=== PATIENT | female | born 1985 | race Caucasian/White ===

== ENCOUNTER 2019-07-12 09:25 | Inpatient (IN) | payer BC, SELFPAY ==
[2019-07-12] VITALS (15 sets, daily range): BP systolic 97–127; BP diastolic 43–69; PULSE 54–75; RESP 14–58; TEMP 36.4–36.9; O2SAT 96–100; BMI 34.7
[2019-07-12] MEDS: Lactated Ringers 1,000 ML 999 ML IV (09:50)
[2019-07-12 10:06] LABS: Absolute Lymphocyte Count 2.11 X10^3/uL (0.83-4.51); Absolute Neutrophil Count 6.8 X10^3/uL (2.0-7.7); Basophil# 0.03 X10^3/uL; Basophil% 0.3 % (0-1); Eosinophil# 0.06 X10^3/uL; Eosinophils% 0.6 % (0-5); Hematocrit 36.8 % (37-47); Hemoglobin 12.2 g/dL (12.0-15.0); Lymphocyte # 2.11 X10^3/ul (4.0); Lymphocyte % 21.3 % (19-41); Mean Corp Hgb Conc 33.2 g/dL (32-36); Mean Corpuscular Hgb 33.2 pg (27.0-32.0); Mean Platelet Vol. 11.4 fl (6.2-12.0); Monocyte# 0.69 X10^3/uL; NRBC Flagged by Analyzer 0 % (0-5); Neutrophil # 6.77 X10^3/uL (2.7-7.7); Neutrophil % 68.3 % (47-70); Platelet Count 236 K/mm3 (150-450); RBC Distribution Width CV 14.1 % (11.6-14.6); RBC Distribution Width SD 51.3 fl (35.1-43.9); Red Blood Count 3.68 M/mm3 (4.2-5.4); White Blood Count 9.9 K/mm3 (4.4-11.0)
[2019-07-12] MEDS: Lactated Ringers 1,000 ML 150 ML IV (10:47)
[2019-07-12] MEDS: Sodium Citrate/Citric Acid 30 ML UDC PO (12:01)
[2019-07-12] MEDS: Cefazolin 2 GM in 0.9% Normal Saline 100 ML IV (12:15)
--- NOTE | 2019-07-12 12:57 | HP.PCM_ITS ---
History Date of Admission: 07/12/19 Final ELIZABET: 07/30/19 Final ELIZABET Source: US <20 weeks Gestational age: 37 Weeks and 3 Days History of this : This is a 33 year-old multigravida at 37-3/7 weeks gestation who presents with twin gestation, transverse to breech presentation for section. has been complicated to date by suspected growth restriction of baby B. Patient has not had any regular contractions. She is had good movement. This is a dichorionic diamniotic twin gestation. Allergies No Known Allergies Allergy (Unverified 05/27/14 08:44) Home Medications: Home Medications Vits [Prenatabs FA ] 1 tablet PO DAILY 05/27/14 Valacyclovir HCl [Valacyclovir] 400 mg PO TID 05/27/14 Smoking Status: Never smoker Alcohol: None Number of Fetus(es): 2 History Past Pregnancies: Past Pregnancies Delivery Date Name GA/ Weeks Outcome Route Wt Sex Labor Length Anesthesia Delivery Location Provider FOB Expected Infant Delivery Method: Scheduled Section Review of Systems Constitutional: Denies: Chills, Fever Eyes: Denies: Blurred vision Cardiovascular: Denies: Chest Pain Respiratory: Denies: Cough Neurological: Denies: Change in Speech, Slurred speech Physical Exam General: Alert, Oriented x3, No apparent distress Cardiovascular: Regular rate Lungs: Normal air movement Abdomen: Soft, Non Tender, Non-Distended, Gravid, Appropriate for Gestational Age Extremities:: Other - 2+ pitting edema Neurological: Cranial nerves II-XII grossly intact METAL NUMERICAL CONTROL PROGRAMMER: Normal external genitalia Estimated gestational size: Appropriate for gestational size Presentation: Transverse Assessment/Plan This is a 33 year-old, multigravida for primary section and bilateral salpingectomy for dichorionic diamniotic twin gestation in transverse, breech presentation. Desires salpingectomy for permanent sterilization. Risk benefits and alternatives to section were discussed with patient, her questions were answered to her satisfaction she desires to proceed.
--- NOTE | 2019-07-12 13:01 | OP.PCM_ITS ---
Delivery Classification: Scheduled Final ELIZABET: 07/30/19 Final ELIZABET Source: US <20 weeks Gestational age: 37 Weeks and 3 Days automatic mold sander: Arlen Goyal Type of Anesthesia:: Spinal Special Medications: none Implants Used: none Date of Procedure: 07/12/19 Pre-Operative Diagnosis: 37 3/7 week, dichorionic, diamniotic twin gestation, suspected growth restriction of twin b, transverse/breech presentation, sterilization request Post-Operative Diagnosis: same Description of Procedure: The patient was taken to the operating room. She was prepped and draped in the dorsal supine position with a leftward tilt. A Pfannenstiel skin incision was made approximately 2 cm above the symphysis pubis and carried through to underlying layer fascia with the scalpel. The fascia was incised incised in the midline and extended laterally with the Franco scissors. The fascia was dissected off the rectus muscles with blunt and sharp dissection. The rectus muscles were in the midline and the peritoneum was entered bluntly. The peritoneal incision was stretched and the bladder blade was placed. The uterine incision was made in a low transverse fashion with the scalpel and extended superiorly and inferiorly with blunt dissection. The amniotic membranes were ruptured bluntly and clear amniotic fluid returned. The 's feet were brought to the incision and the baby was turned back up after the buttocks were delivered. The baby was grasped with a blue towel and the arms were swept out individually and the head was delivered in a flexed position easily without difficulty with minimal fundal pressure. The second was found to be christiano breech with the feet near the head. After artificial rupture membranes, clear fluid returned. I could not grasp the head and bring it to the incision so both feet were grasped and the baby was delivered to the buttocks and turned back up the arms were swept out and the head delivered again easily with minimal fundal pressure. Cord clamping was delayed for both neonates. The cord was clamped and cut as the infant was stimulated. Cord clamping was delayed. The infant was handed off to the waiting nursing staff. The placenta was delivered with fundal massage and gentle traction in the standard fashion. The uterus was exteriorized and cleared of all clots and debris. The cervix was dilated with a ring forcep. The uterine incision was closed with #1 Vicryl in a running locked fashion. A second layer of the same suture was used in an imbricating fashion. The incision was examined and was found to be hemostatic. The uterus was placed back into the peritoneal cavity and the right fallopian tube was identified and followed out to the fimbriated end. The LigaSure was used to clamp, seal, and transect the antimesenteric portion of the tube to the cornual insertion. The tube was amputated with the LigaSure device and the pedicles were hemostatic. The same procedure was performed on the contralateral side and again hemostasis was assured. Uterine incision was reexamined and found to be hemostatic. The rectus muscles were examined and any bleeding was Bovie cauterized. The parietal peritoneum and rectus muscles were closed en bloc with an 0 Vicryl running suture. The surgical teams outer gloves were then changed. The rectus fascia was examined and any bleeding was Bovie cauterized and the rectus fascia was closed with 1 Vicryl suture in a running standard fashion. The subcutaneous tissue was examining and any bleeding was Bovie cauterized. The subcutaneous tissue was reapproximated with 3-0 Vicryl suture. The skin was closed in a subcuticular f ashion by the INCOME TAX PREPARER with me present in the labor and delivery suite. I performed the remainder of the procedure with assistance. All sponge, lap, and needle counts were correct. The patient was taken to her room for recovery in a stable condition. Amniotic Membrane Rupture Type: Artificial Amniotic Fluid Description: Clear Placenta Disposition: Sent to Pathology - [facility] due to baby B admitted to [facility] Specimen(s) sent to pathology: bilateral fallopian tubes Drain: Mcarthur to straight drain Fluids Replaced: 1000 Cord Entanglement: None Cord Vessel Description: 3 Vessels Esitmated Blood Loss (ml): 100 Infant Gender: Male - [place], 6lb 5 oz (1 minute): 8 (5 minute): 9 Delayed cord clamping: Yes Antibiotic Given: Ancef 2 grams IV x1 Complications: None - Admit VTE Documentation VTE Present on Admission: No VTE Mechan Device Prophylaxis: SCD's VTE Pharm Prophylaxis ordered?: No Reason prophylaxis not ordered:: Procedure Not Indicated Baby B - Information Amniotic Membrane Rupture Type: Artificial Presentation: Christiano Breech - Operative Information Cord Entanglement: None Cord Vessel Description: 3 Vessels B gender: Male - 4lb 4 oz, Connor (1 minute): 8 (5 minute): 9
[2019-07-12] MEDS: Oxytocin 30 units/NS 500 ml 30 UNITS/500 ML IV.SOLN 167 UNITS IV (13:20)
--- NOTE | 2019-07-12 13:49 | FALS_PTH ---
PATIENT: CHRIS PALACIOS LOC: [facility] U#:[id number] AGE/SX: 33/F ROOM: WP007 RE07/12/[address]: Dr. Jennie Umaña MD : 1985 BED: 1 DIS: 07/15/2019 SPEC #: [id number] RECD: 07/13/19 09:14 STATUS: OMID KAYY #: [id number] DHAVAL: 07/12/19 13:[address]: Jennie Umaña DEPT: SURGICAL PATHOLOGY RECD BY: Ilana Maya ENTERED: 07/13/19 09:15 SP TYPE: FALL TUBES OTHR DR: No Primary Care Phys Tissues: Fallopian tube Procedures: Surgery Specimen Level II HEADER OPERATION: Tubal ligation PRE-OP DIAGNOSIS: Sterilization TISSUE SUBMITTED: Bilateral fallopian tubes, suture in right tube MICROSCOPIC DIAGNOSIS Bilateral fallopian tubes, salpingectomy: Bilateral fallopian tubes including fimbrial ends, no pathologic diagnosis. SJ:melva 07/14/19 MICROSCOPIC DESCRIPTION Slides are reviewed. GROSS DESCRIPTION Received in fixative is one container labeled with the patient's name and designated bilateral fallopian tubes, suture in right. The specimen consists of two fallopian tubes with an average length of 7 cm and has an average diameter of 0.8 cm. Both fallopian tubes have normal fimbriated ends. No mass lesions are identified. Seed District Sales Manager sections are submitted in two cassettes as follows: 1 - right fallopian tube, 2 - left fallopian tube. / AM:melva 07/13/19 TC:4 CPT: 33979 x2
[2019-07-12 14:00] LABS: Pathology Specimen OB SEE PATHOLOGY REPORT
[2019-07-12] MEDS: Methylergonovine 0.2 MG/ML Ampul IM (14:05)
[2019-07-12] MEDS: DiphenhydrAMINE 25 MG Capsule PO ×2 (14:40→22:09)
[2019-07-12] MEDS: Lactated Ringers 1,000 ML 100 ML IV (16:33)
[2019-07-12] MEDS: Acetaminophen 500 MG Tablet 1000 MG PO (16:50)
[2019-07-12] MEDS: Ketorolac 30 MG/ML Syringe IV (18:05)
[2019-07-13] MEDS: Ketorolac 30 MG/ML Syringe IV ×4 (00:20→17:33)
[2019-07-13] MEDS: 0.9% Saline Lock 10 ML Syringe IV ×4 (00:20→17:33)
[2019-07-13 00:33] VITALS: BP 115/62; PULSE 63; RESP 16; TEMP 36.5; O2SAT 98
[2019-07-13] MEDS: Acetaminophen 500 MG Tablet 1000 MG PO ×3 (04:28→21:48)
[2019-07-13 04:33] VITALS: BP 121/59; PULSE 61; RESP 18; TEMP 36.5; O2SAT 99
[2019-07-13] MEDS: DiphenhydrAMINE 25 MG Capsule PO (06:52)
[2019-07-13 07:45] LABS: Hematocrit 27.4 % (37-47); Hemoglobin 9.1 g/dL (12.0-15.0); Mean Corp Hgb Conc 33.2 g/dL (32-36); Mean Corpuscular Hgb 34.2 pg (27.0-32.0); Mean Platelet Vol. 11.3 fl (6.2-12.0); Platelet Count 195 K/mm3 (150-450); RBC Distribution Width CV 14.2 % (11.6-14.6); Red Blood Count 2.66 M/mm3 (4.2-5.4); White Blood Count 16.4 K/mm3 (4.4-11.0)
[2019-07-13 08:02] VITALS: BP 113/50; PULSE 71; RESP 14; TEMP 36.5
--- NOTE | 2019-07-13 08:11 | PCM.PN.OB ---
Subjective: pain well controlled, average lochia. Yahir. regular diet. - Physical Exam Vitals/I&O's: Vital Signs Temp Pulse Resp BP Pulse Ox 97.7 F L 71 14 113/50 L 99 07/13/19 08:02 07/13/19 08:02 07/13/19 08:02 07/13/19 08:02 07/13/19 04:33 Oxygen Delivery Method Room Air Weight: 91.8 kg Body Mass Index (BMI) 34.7 Intake and Output for Last 24 Hours 07/11/19 07/12/19 07/13/19 23:59 23:59 23:59 Intake Total 1763.2 / 1763.2 1400 / 1400 Output Total 100 / 100 1250 / 1250 Balance 1663.2 / 1663.2 150 / 150 General: Alert, Cooperative, No apparent distress Abdomen: Soft, Distended - moderately, softly, Tender - appropriately Skin: Incision - bandage is clean, dry and intact Laboratory Results 07/12/19 09:50: WBC 9.9, RBC 3.68 L, Hgb 12.2, Hct 36.8 L, MCV 100.0 H, MCH 33.2 H, MCHC 33.2, RDW Std Deviation 51.3 H, RDW Coeff of Alvarez 14.1, Plt Count 236, MPV 11.4, Immature Gran % (Auto) 2.500 H, Neut % (Auto) 68.3, Lymph % (Auto) 21.3, [place] % (Auto) 7.0, Eos % (Auto) 0.6, Baso % (Auto) 0.3, Absolute Neuts (auto) 6.8, Absolute Lymphs (auto) 2.11, Nucleated RBC % 0 07/12/19 09:50: Blood Type A POSITIVE, Antibody Screen NEGATIVE 07/13/19 07:36: WBC 16.4 H, RBC 2.66 L, Hgb 9.1 L, Hct 27.4 L, MCV 103.0 H, MCH 34.2 H, MCHC 33.2, RDW Std Deviation 53.0 H, RDW Coeff of Alvarez 14.2, Plt Count 195, MPV 11.3 Current Medications Acetaminophen (Tylenol) 1,000 mg PO Q8H PRN PRN Reason: Pain Score 1-3/10 Last Admin: 07/13/19 04:28 Dose: 1,000 mg Documented by: Bisacodyl (Dulcolax) 10 mg RECTAL UD PRN PRN Reason: If no BM Diphenhydramine HCl (Benadryl) 25 mg PO Q6H PRN PRN PRN Reason: ITCHING Stop: 07/13/19 14:26 Last Admin: 07/13/19 06:52 Dose: 25 mg Documented by: Hydrocortisone (Hytone) 1 applic TOPICAL TID PRN PRN; Protocol PRN Reason: Discomfort Naloxone HCl 4 mg/ Dextrose 504 mls @ 0 mls/hr IV .Q0M PRN; Protocol PRN Reason: Respiratory depression Ketorolac Tromethamine (Toradol (Bkc)) 30 mg IV Q6H HELENA Stop: 07/14/19 12:01 Last Admin: 07/13/19 06:33 Dose: 30 mg Documented by: Methylergonovine Maleate (Methergine) 0.2 mg IM X1 PRN PRN Reason: Uterine Atony Last Admin: 07/12/19 14:05 Dose: 0.2 mg Documented by: Metoclopramide HCl (Reglan) 10 mg IV Q4H PRN PRN PRN Reason: Nausea/Vomiting Nalbuphine HCl (Nubain) 5 mg IV Q3H PRN PRN PRN Reason: ITCHING Stop: 07/13/19 14:26 Naloxone HCl (Narcan) 0.02 mg IV Q1M PRN PRN Reason: RR <10 and pt unresponsive Naproxen (Naprosyn) 250 - 500 mg PO Q8H PRN PRN PRN Reason: Pain Score 1-3/10 Ondansetron HCl (Zofran) 4 mg IV Q4H PRN PRN PRN Reason: Nausea Oxycodone HCl (Oxyir) 5 - 10 mg PO Q4H PRN PRN PRN Reason: Pain Score 4-10/10 Prochlorperazine Edisylate (Compazine Iv) 10 mg IV Q6H PRN PRN PRN Reason: NAUSEA Senna/Docusate Sodium (Senokot-S, Shahla-Colace) 0 tablet PO DAILY PRN PRN Reason: Constipation Simethicone (Mylicon) 80 mg PO PCHS PRN PRN Reason: Indigestion/stomach pain Sodium Chloride () 5 - 15 ml IV UD PRN PRN Reason: SALINE FLUSH Last Admin: 07/13/19 06:33 Dose: 10 ml Documented by: Medical Necessity - Tobacco Use Smoking Status: Never smoker Assessment/Plan POD#1 status post primary section with bilateral salpingectomy. Patient is doing well. Mild acute blood loss anemia appropriate for blood loss during surgery. Both neonates are in the special care nursery. Plans to work on breast-feeding and pump. Ambulate. Routine postoperative care reviewed.
[2019-07-13 12:50] VITALS: BP 116/60; PULSE 87; RESP 16; TEMP 36.6
[2019-07-13] MEDS: Senna/Docusate Sodium 1 Tablet PO (13:46)
[2019-07-13 19:27] VITALS: BP 113/62; PULSE 80; RESP 16; TEMP 36.7; O2SAT 100
[2019-07-14] MEDS: Ketorolac 30 MG/ML Syringe IV ×3 (00:12→12:42)
[2019-07-14] MEDS: 0.9% Saline Lock 10 ML Syringe IV ×3 (00:13→12:43)
[2019-07-14 02:18] VITALS: BP 122/74; PULSE 79; RESP 16; TEMP 36.4
[2019-07-14] MEDS: oxyCODONE 5 MG Tablet PO (03:34)
[2019-07-14 07:45] VITALS: BP 123/65; PULSE 79; RESP 16; TEMP 36.6; O2SAT 99
[2019-07-14] MEDS: Acetaminophen 500 MG Tablet 1000 MG PO ×2 (07:49→16:08)
--- NOTE | 2019-07-14 08:05 | PCM.PN.OB ---
Subjective: Patient seen at bedside. Reports feeling well physically. Passing flatus, voiding, and ambulating without difficulty. Pain is well controlled. Pumping for twins in SCN. - Physical Exam Vitals/I&O's: Vital Signs Temp Pulse Resp BP Pulse Ox 97.5 F L 79 16 122/74 H 100 07/14/19 02:18 07/14/19 02:18 07/14/19 02:18 07/14/19 02:18 07/13/19 19:27 Oxygen Delivery Method Room Air Weight: 202 lb 6.15 oz Body Mass Index (BMI) 34.7 Intake and Output for Last 24 Hours 07/12/19 07/13/19 07/14/19 23:59 23:59 23:59 Intake Total 1763.2 / 1763.2 1400 / 1400 Output Total 100 / 100 1650 / 1650 Balance 1663.2 / 1663.2 -250 / -250 General: Alert HEENT: Atraumatic Oral: Moist Mucosa Lungs: Normal air movement Abdomen: Bowel Sounds Present, Soft, Non Tender Extremities: No Calf Tenderness, Edema - Bilateral 2+ pitting edema in lower extemities Skin: No rashes Neurological: Cranial nerves II-XII grossly intact Psych/Mental Status: Appropriate, Alert and oriented to time, place, person, mood and affect Current Medications Acetaminophen (Tylenol) 1,000 mg PO Q8H PRN PRN Reason: Pain Score 1-3/10 Last Admin: 07/14/19 07:49 Dose: 1,000 mg Documented by: Bisacodyl (Dulcolax) 10 mg RECTAL UD PRN PRN Reason: If no BM Hydrocortisone (Hytone) 1 applic TOPICAL TID PRN PRN; Protocol PRN Reason: Discomfort Naloxone HCl 4 mg/ Dextrose 504 mls @ 0 mls/hr IV .Q0M PRN; Protocol PRN Reason: Respiratory depression Ketorolac Tromethamine (Toradol (Bkc)) 30 mg IV Q6H HELENA Stop: 07/14/19 12:01 Last Admin: 07/14/19 05:47 Dose: 30 mg Documented by: Methylergonovine Maleate (Methergine) 0.2 mg IM X1 PRN PRN Reason: Uterine Atony Last Admin: 07/12/19 14:05 Dose: 0.2 mg Documented by: Metoclopramide HCl (Reglan) 10 mg IV Q4H PRN PRN PRN Reason: Nausea/Vomiting Naloxone HCl (Narcan) 0.02 mg IV Q1M PRN PRN Reason: RR <10 and pt unresponsive Naproxen (Naprosyn) 250 - 500 mg PO Q8H PRN PRN PRN Reason: Pain Score 1-3/10 Ondansetron HCl (Zofran) 4 mg IV Q4H PRN PRN PRN Reason: Nausea Oxycodone HCl (Oxyir) 5 - 10 mg PO Q4H PRN PRN PRN Reason: Pain Score 4-10/10 Last Admin: 07/14/19 03:34 Dose: 5 mg Documented by: Prochlorperazine Edisylate (Compazine Iv) 10 mg IV Q6H PRN PRN PRN Reason: NAUSEA Senna/Docusate Sodium (Senokot-S, Shahla-Colace) 0 tablet PO DAILY PRN PRN Reason: Constipation Last Admin: 07/13/19 13:46 Dose: 2 tablet Documented by: Simethicone (Mylicon) 80 mg PO PCHS PRN PRN Reason: Indigestion/stomach pain Sodium Chloride () 5 - 15 ml IV UD PRN PRN Reason: SALINE FLUSH Last Admin: 07/14/19 05:47 Dose: 10 ml Documented by: Medical Necessity - Tobacco Use Smoking Status: Never smoker Assessment/Plan PPD #2 S/P Primary C/S Routine care Pain management
[2019-07-14] MEDS: Senna/Docusate Sodium 1 Tablet PO (12:42)
[2019-07-14 12:45] VITALS: BP 117/63; PULSE 92; RESP 16; TEMP 36.5
--- NOTE | 2019-07-14 16:12 | NURSING ---
pt in SCN feeding infants
[2019-07-14] MEDS: Naproxen 250 MG Tablet PO (17:34)
[2019-07-14 19:40] VITALS: BP 131/57; PULSE 92; RESP 18; TEMP 36.9
[2019-07-15 01:45] VITALS: BP 127/67; PULSE 93; RESP 18; TEMP 36.5
[2019-07-15] MEDS: Naproxen 250 MG Tablet PO ×2 (01:45→10:17)
[2019-07-15] MEDS: oxyCODONE 5 MG Tablet PO (04:09)
[2019-07-15] MEDS: Acetaminophen 500 MG Tablet 1000 MG PO (07:26)
[2019-07-15 07:28] LABS: Pathology Specimen OB SEE PATHOLOGY REPORT
[2019-07-15] MEDS: Senna/Docusate Sodium 1 Tablet PO (07:31)
[2019-07-15 07:40] VITALS: BP 111/53; PULSE 88; RESP 16; TEMP 36.8
--- NOTE | 2019-07-15 08:53 | PCM.PN.OB ---
Subjective: Doing well per patient and nursing staff. Ambulating and taking PO without difficulty. Voiding and passing flatus. Pain controlled. Pumping breast milk. Twins in special care nursery. Lochia normal. - Physical Exam Vitals/I&O's: Vital Signs Temp Pulse Resp BP Pulse Ox 98.2 F 88 16 111/53 L 99 07/15/19 07:40 07/15/19 07:40 07/15/19 07:40 07/15/19 07:40 07/14/19 07:45 Oxygen Delivery Method Room Air Weight: 202 lb 6.15 oz Body Mass Index (BMI) 34.7 Intake and Output for Last 24 Hours 07/13/19 07/14/19 07/15/19 23:59 23:59 23:59 Intake Total 1400 / 1400 Output Total 1650 / 1650 Balance -250 / -250 General: Alert, Oriented x3, Cooperative HEENT: Atraumatic, Normocephalic Neck: Trachea Midline Lungs: Clear to auscultation, Normal air movement, No rhonchi, No wheeze Cardiovascular: Regular rate, Regular Rhythm, No murmurs Abdomen: Bowel Sounds Present - Fundus firm 2 below U, incision dry and intact Extremities: No edema Psych/Mental Status: Normal Affect, Appropriate Current Medications Acetaminophen (Tylenol) 1,000 mg PO Q8H PRN PRN Reason: Pain Score 1-3/10 Last Admin: 07/15/19 07:26 Dose: 1,000 mg Documented by: Bisacodyl (Dulcolax) 10 mg RECTAL UD PRN PRN Reason: If no BM Hydrocortisone (Hytone) 1 applic TOPICAL TID PRN PRN; Protocol PRN Reason: Discomfort Naloxone HCl 4 mg/ Dextrose 504 mls @ 0 mls/hr IV .Q0M PRN; Protocol PRN Reason: Respiratory depression Methylergonovine Maleate (Methergine) 0.2 mg IM X1 PRN PRN Reason: Uterine Atony Last Admin: 07/12/19 14:05 Dose: 0.2 mg Documented by: Metoclopramide HCl (Reglan) 10 mg IV Q4H PRN PRN PRN Reason: Nausea/Vomiting Naloxone HCl (Narcan) 0.02 mg IV Q1M PRN PRN Reason: RR <10 and pt unresponsive Naproxen (Naprosyn) 250 - 500 mg PO Q8H PRN PRN PRN Reason: Pain Score 1-3/10 Last Admin: 07/15/19 01:45 Dose: 500 mg Documented by: Ondansetron HCl (Zofran) 4 mg IV Q4H PRN PRN PRN Reason: Nausea Oxycodone HCl (Oxyir) 5 - 10 mg PO Q4H PRN PRN PRN Reason: Pain Score 4-10/10 Last Admin: 07/15/19 04:09 Dose: 5 mg Documented by: Prochlorperazine Edisylate (Compazine Iv) 10 mg IV Q6H PRN PRN PRN Reason: NAUSEA Senna/Docusate Sodium (Senokot-S, Shahla-Colace) 0 tablet PO DAILY PRN PRN Reason: Constipation Last Admin: 07/15/19 07:31 Dose: 2 tablet Documented by: Simethicone (Mylicon) 80 mg PO PCHS PRN PRN Reason: Indigestion/stomach pain Sodium Chloride () 5 - 15 ml IV UD PRN PRN Reason: SALINE FLUSH Last Admin: 07/14/19 12:43 Dose: 10 ml Documented by: Medical Necessity - Tobacco Use Smoking Status: Never smoker
--- NOTE | 2019-07-15 09:00 | DCINST_ITS ---
Discharge Diet: No Restrictions Discharge Activity: May Not Drive - for 2 weeks or while taking narcotic pain meds., May Shower, May Take a Tub Bath - in 7 days. May resume sexual activity in: 4-6 weeks Lifting Restrictions: 20 pounds Additional Activity Instructions:: Nothing in the vagina for 4-6 weeks. You may return to work/school in 6 weeks. Call your doctor if your incision/area has: Continuous Slow Oozing, Sudden Increased Bleeding, Increased Pain/ Swelling, Increased Redness, Foul Smelling Discharge Call your doctor if you observe: Fever of 101 or Higher Suture Line Care: Avoid Pulling/Pushing, Avoid Pinching/Bending Additional Instructions: If you experience any of the following, contact your healthcare provider. * Bleeding that soaks a pad every hour for 2 hours * Fever 100.4 or higher * Unrelieved incision or abdominal pain * Swelling, redness, discharge or bleeding from your incision or episiotomy site * Your incision begins to separate * Problems urinating (including inability to urinate or burning while urinating). * Visual changes * Severe headache * Flu-like symptoms * Pain or redness in one of both of your breasts * Pain, warmth, tenderness or swelling in your legs, especially the calf area * Frequent nausea and vomiting * Symptoms of depression or anxiety If you experience any of the following, call 911 or go to the nearest Emergency Room. * Chest pain * Problems breathing * Seizure activity * Partial or complete paralysis of a body part, slurred speech, weakness or drooping of the face, or a sudden inability to walk or hold your balance Allergies/Adverse Reactions: Allergies No Known Allergies Allergy (Unverified 05/27/14 08:44) Medications to take at Discharge Vits [Prenatabs FA ] 1 tablet PO DAILY 05/27/14 Valacyclovir HCl [Valacyclovir] 400 mg PO TID 05/27/14 Oxycodone [Oxyir] 5 mg PO Q4H PRN PRN 7 Days #20 tablet NS 07/15/19 The following prescriptions were given: Oxycodone [Oxyir] 5 mg PO Q4H PRN PRN 7 Days #20 tablet NS PRN Reason: Pain Score 4-10/10 Transmission Status: Sent to [facility] Follow-Up: Call to make an appointment with your doctor for an incision check in 1-2 weeks. You will also need a 6 week post- follow up appointment. Test results from this visit will be discussed in further detail at your follow- up appointment, if applicable. Primary Care Physician: Care Physician,No Primary [Primary Care Provider] -
[2019-07-15 10:35] VITALS: RESP 18
--- NOTE | 2019-07-15 10:36 | NURSING ---
Discharged to hotel status, twins at [facility].
== END 2019-07-15 10:35 | disposition home or self-care (01) | DRG 785 ==
PROVIDERS: Admitting Provider Obstetrics & Gynecology; Referring Provider Obstetrics & Gynecology; Visit Provider Obstetrics & Gynecology
PROC: 10D00Z1 Extraction of Products of Conception, Low, Open Approach (ICD-10-PCS; CPT 59514; principal; 2019-07-12 11:45)
DX: O30.043 Twin pregnancy, dichorionic/diamniotic, third trimester (principal); Z30.2 Encounter for sterilization; O32.8XX1 Maternal care for other malpresentation of fetus, fetus 1; O32.1XX2 Maternal care for breech presentation, fetus 2; Z3A.37 37 weeks gestation of pregnancy; Z37.2 Twins, both liveborn
CPT/HCPCS: 36415; 85025; 85027; 86850; 86900; 86901; 87635; 88302; 99218; G2023; J7120; A4216; G0378; J2405; U0003

== ENCOUNTER 2019-08-27 13:55 | Outpatient (CLI) | payer BC, SELFPAY ==
[2019-07-12 10:11] VITALS: BMI 34.7
== END 2019-08-27 14:35 | disposition home or self-care (01) ==
LOC: WPOUT 13:59 → WP 14:00
PROVIDERS: Visit Provider Obstetrics & Gynecology
DX: O92.79 Other disorders of lactation (principal); O91.22 Nonpurulent mastitis associated with the puerperium
CPT/HCPCS: 96158; 96159

== ENCOUNTER 2020-12-07 10:31 | Emergency (ER) | payer BC, SELFPAY ==
[2020-12-07 10:32] VITALS: BP 135/65; PULSE 72; RESP 16; TEMP 36.2; O2SAT 100; BMI 24.0
--- NOTE | 2020-12-07 10:56 | EX.ED.DYSGE1 ---
HPI History of Present Illness Chief Complaint: Sore Throat Informant: patient Onset/Context/Timing Onset: Yesterday Context: Gradual Onset Timing: Continuous Quality: Dull Location: Throat Worsened by: Swallowing Relieved by: Nothing Narrative Narrative: Patient presents with sore throat that began yesterday. Patient states she was diagnosed with a peritonsillar abscess and had it drained yesterday. Patient followed up with Dr. Evangelista again today. He drained the abscess again today. Patient states her throat feels better after drainage. Patient was referred to the emergency department because Dr. Evangelista felt she was dehydrated. Patient states she has not been able to keep down much fluids over the last few days. Patient admits to some nausea and vomiting. PFSH PFSH Home Medications vit,[id number] [Prenatabs FA] 1 tab PO DAILY 05/27/14 [History Last Taken 07/11/19 22:00 1 tab] valacyclovir 400 mg PO TID 05/27/14 [History Last Taken 07/11/19 22:00 400 mg] Allergy/AdvReac Type Severity Reaction Status Date / Time No Known Allergies Allergy Unverified 12/07/20 10:34 Surgical History H/O section Social History Smoking Status: Never smoker ROS ROS ED Constitutional Constitutional ED: Denies chills or fever(s) Eyes Eyes: Denies blurry vision or change in vision ENT ENT ED: Reports sore throat; Denies rhinorrhea Cardiovascular Cardiovascular: Denies chest pain or palpitations Respiratory/Chest Respiratory/Chest: Denies cough or dyspnea Gastrointestinal Gastrointestinal: Reports nausea and vomiting Genitourinary Genitourinary ED: Denies dysuria or hematuria Musculoskeletal Musculoskeletal: Denies back pain or neck pain Integumentary Denies abscess or rash Neurologic Neurologic: Denies headache(s) or weakness Allergic/Immunologic Allergic/Immunologic ED: Denies mouth swelling or urticaria EXAM Physical Exam Const Vital Signs: 12/07/20 10:32 12/07/20 13:09 Temperature 97.1 F L Temperature Source Temporal Pulse Rate 72 Respiratory Rate 16 16 Blood Pressure 135/65 H Blood Pressure Mean 88 Pulse Ox 100 Oxygen Delivery Method Room Air Positive well nourished and well developed General Appearance ED: well developed HEENT Reports moist mucous membranes Eyes PERRL and EOMs intact bilaterally Neck supple and no JVD Resp normal respiratory effort and clear to auscultation bilaterally Cardio regular rate and regular rhythm GI non-tender Palpation: soft Neuro oriented x3, CN's II-XII intact bilaterally and no sensory deficits noted Sensorium / Orientation: alert Motor Exam: strength 5/5 throughout Psych mental status grossly normal MDM MDM MDM Narrative Medical decision making narrative: Patient was given IV fluids. Patient was given a dose of Unasyn here. Patient was given a dose of Toradol here. Patient was feeling better on reevaluation. Patient was instructed to follow-up with her primary care physician in 7 to 10 days. Patient was also instructed to follow-up with Dr. Evangelista as scheduled. Patient was instructed to return if worse in any way. Patient understood and was agreeable with the plan. All questions were answered. Discharge Plan Triage Chief Complaint: Sore Throat ED Provider: Vidal Avina Dx/Rx/DC Orders Clinical Impression: Peritonsillar abscess Instructions: ED Peritonsillar Abscess Prescriptions: No Action valacyclovir 1,000 MG tablet 400 mg PO TID RF: 0 vit,[id number] [Prenatabs FA] 1 TABLET tablet 1 tab PO DAILY RF: 0 Primary Care Provider: Care Physician,No Primary Referrals: Todd Evangelista MD [STAFF PHYSICIAN] - Keep [facility] appointment Care Physician,No Primary [Primary Care Provider] - Disposition Disposition: Home, Self Care
[2020-12-07] MEDS: 0.9% Normal Saline 1,000 ML 1000 ML IV (11:23)
[2020-12-07] MEDS: Ketorolac 30 MG/ML Syringe IV (11:24)
[2020-12-07 13:09] VITALS: RESP 16
[2020-12-07 14:13] VITALS: PULSE 84; RESP 16; O2SAT 99
--- NOTE | 2020-12-07 14:13 | ED.RN ---
THIS NURSE REVIEWED D/C INSTRUCTIONS WITH PT. PT VERBALIZED UNDERSTANDING OF INSTRUCTIONS. IV D/C. IV CATHETER INTACT. PT TOLERATED WELL. PT DENIES FURTHER NEEDS OR QUESTIONS AT THIS TIME
== END 2020-12-07 14:15 | disposition home or self-care (01) ==
PROVIDERS: Emergency Provider Emergency Medicine
DX: J36 Peritonsillar abscess (principal); R11.2 Nausea with vomiting, unspecified
CPT/HCPCS: 96361; 96365; 96375; 99284; J7030; A4216; J0295

== ENCOUNTER → 2020-12-07 | Outpatient (CLI) | payer BC, SELFPAY | END | disposition home or self-care (01) | LOC: LABSPEC 15:05 | PROVIDERS: Visit Provider Otolaryngology | DX: J02.9 Acute pharyngitis, unspecified (principal) | CPT/HCPCS: 87070; 87077 ==